=== PATIENT | male | born 2000 | race Caucasian/White ===

== ENCOUNTER 2021-12-20 22:20 | Inpatient (IN) | payer BC, SELFPAY ==
[2021-12-20 22:23] VITALS: BP 136/74; PULSE 63; RESP 18; TEMP 36.8; O2SAT 99; BMI 21.7
[2021-12-21 06:00] VITALS: BP 111/71; PULSE 56; RESP 16; TEMP 36.6; O2SAT 98
[2021-12-21] MEDS: folic acid 1 mg Tablet PO (08:43)
[2021-12-21] MEDS: multivitamin therapeutic Tablet 1 TAB PO (08:43)
[2021-12-21] MEDS: thiamine 100 mg Tablet PO (08:43)
--- NOTE | 2021-12-21 10:49 | W.PM.NPUH&PS ---
Providers/Chief Complaint Admitting Physician: Aftab Jacob MD Chief Complaint: Jeffryrose richarden HPI NPU History of Present Illness Yemi Oviedo is a 21 year old male who presented to outside hospital via EMS with alcohol intoxication and reportedly found lying unresponsive in the front yard of his parents home today. He was reportedly gagging and having emesis upon arrival of EMS. They report a significant history of alcohol abuse with multiple hospitalizations in the past. He received IM ketamine and then was reassessed when his alcohol level diminished. He was also positive for cannabis as well as blood alcohol of 257. He was transferred to [facility] and admitted to the neuropsychiatric unit for definitive treatment of those issues. He was sent with affidavits pressing concern for need for involuntary commitment if necessary. He presents today reporting that he had a tough life and that he has started drinking as a solution. He reports he had 1 brother killed when he was 5 who then run over by car. And then at 17 few years ago the brother who had been babysitting her brother got hit by the car kill himself secondary to feeling responsible for the situation. He reports that he is been hospitalized a few times specifically for alcohol overuse but he is never had inpatient psychiatric care, he denied outpatient psychiatric care, and has never been on medications. He reports he does have some cigarette smoking and cannabis use and has had alcohol overuse recently. He denies any other drug use. He reports that currently he is struggled with employment he has been unable to get a job when he does get a job quitting. There is amotivational syndrome along with depression, feelings of helplessness and hopelessness, and possible issues with hypervigilance avoidant behavior problematic sleep have culminated in him in the alcohol as an approach. Unfortunately he feels very adamant that he does not want to try medications reporting that he wants to figure it out without medication. He says the fact that its been was not going on recently without success but we discussed the risk benefits and alternatives of a trial of antidepressant or something for anxiety and he understood and agreed proceed as is documented in this note was action of those types of interventions were he currently lives in a house with his 2 sisters who are his remaining siblings from his parents. He reports that his mother lives with her and that his father was not around when he was a kid. He is not on a 96-hour hold but does have affidavits. Which we discussed. Meds NPU Home Medications Medication Instructions Recorded Confirmed Last Taken Type No Known Home Medications 12/20/21 12/20/21 Unknown History Allergies Allergy/AdvReac Type Severity Reaction Status Date / Time No Known Allergies Allergy Verified 12/20/21 22:24 Mental Status Exam MSE Comments: This is a slender, well-developed white male in hospital scrubs with adequate grooming and limited eye contact. No abnormal movements. Cooperative with exam in mild distress. Speech was decreased rate and volume. Mood described as depressed, affect congruent. Thought process organized. Thought content: patient denies suicidal or homicidal ideation, there were no delusions reported or noted, she denied auditory or visual hallucinations. Attention and concentration were intact and memory appeared reliable but none were formally tested. He?s alert and oriented times three. Insight and judgment appeared limited, impulse control appears impaired. Vitals/I&O/Wt Last Vital Signs Temp 97.9 F 12/21/21 06:00 Pulse 56 L 12/21/21 06:00 Resp 16 12/21/21 06:00 BP 111/71 12/21/21 06:00 Pulse Ox 98 12/21/21 06:00 Weight last 48 hrs Weight 72.665 kg A&P Assessment and plan (1) Alcohol use disorder, severe, dependence: Status: Acute (2) Major depressive disorder: Status: Acute (3) Complicated bereavement: Status: Acute Plan This is a 21-year-old white male with a long history of alcohol use with problematic drinking behavior, trauma and bereavement issues thoughts who presents reporting that he needs to get help, but not wanting to take any medications. 1. Continue current medication. 2. Continue every 15 minute checks for safety. 3. Encourage individual, group and milieu therapies. 4. Encourage sober living treatment after discharge at the highest level of care to which he is willing to commit. 5. We will monitor and consider whether we need to initiate a 96-hour hold if he is desiring to leave immediately given the affidavits on the chart. Involuntary Hold Information 96 Hour Hold: 96 Hour Involuntary Admission: No Attestations NPU Medical Necessity Statement*: Inpatient hospitalization is medically necessary and the clinically appropriate intervention at this time. We will monitor medication to make changes as indicated. Patient will be in the hospital for over two midnights. Likely length of stay 3 to 5 days. This will Coding Level of Care Code Acute Cessation Systems Outreach Specialist for g Fwd Diagnoses Alcohol use disorder, severe, dependence F10.20 Major depressive disorder F32.9 Complicated bereavement F43.21
[2021-12-21 14:00] VITALS: BP 125/66; PULSE 64; RESP 20; TEMP 36.6; O2SAT 98
[2021-12-21 21:35] VITALS: BP 113/66; PULSE 52; RESP 16; TEMP 36.4; O2SAT 99
[2021-12-22] MEDS: trazodone 50 mg Tablet PO (01:07)
[2021-12-22 06:00] VITALS: BP 110/70; PULSE 81; RESP 16; TEMP 36.4; O2SAT 96
[2021-12-22] MEDS: folic acid 1 mg Tablet PO (07:53)
[2021-12-22] MEDS: thiamine 100 mg Tablet PO (07:53)
[2021-12-22] MEDS: multivitamin therapeutic Tablet 1 TAB PO (07:53)
[2021-12-22 14:00] VITALS: BP 115/77; PULSE 69; RESP 17; TEMP 36.9; O2SAT 95
--- NOTE | 2021-12-22 17:15 | P.NPUPN_ITS ---
Subjective NPU Subjective: Patient presents today being more outgoing in the conversation and less guarded. He talked about some of his issues and why he thinks he has not been able to stay employed. He talked about being fired from [employer] distribution and that they are released they have been unwilling to consider t aking him back. We discussed ways to approach that issue. He talked about his drinking and what it actually appears like with not drinking daily but when he does drink he drinks 2 excess. He continues to endorse wanting to approach this since medication but was much more reasonable in discussing the overall picture of his life. We discussed likely discharge in the next 48 hours. Mental Status Exam MSE Comments: This is a slender, well-developed white male in hospital scrubs with adequate grooming and improving eye contact. No abnormal movements. Cooperative with exam in mild distress. Speech was more normal rate and volume. Mood described as a little better, affect congruent. Thought process organized. Thought content: patient denies suicidal or homicidal ideation, there were no delusions reported or noted, she denied auditory or visual hallucinations. Attention and concentration were intact and memory appeared reliable but none were formally tested. He?s alert and oriented times three. Insight and judgment appeared limited, impulse control appears impaired. Vitals/I&O/Wt Last Vital Signs Temp 98 F 12/22/21 21:13 Pulse 72 12/22/21 21:13 Resp 18 12/22/21 21:13 BP 134/85 12/22/21 21:13 Pulse Ox 99 12/22/21 21:13 A&P Assessment and plan (1) Complicated bereavement: Status: Acute (2) Major depressive disorder: Status: Acute (3) Alcohol use disorder, severe, dependence: Status: Acute Plan This is a 21-year-old white male with a long history of alcohol use with problematic drinking behavior, trauma and bereavement issues thoughts who presents reporting that he needs to get help, but not wanting to take any medications. 1.? Continue current medication. 2.? Continue every 15 minute checks for safety. 3.? Encourage individual, group and milieu therapies. 4.? Encourage sober living treatment after discharge at the highest level of care to which he is willing to commit. 5.? We will monitor and consider whether we need to initiate a 96-hour hold if he is desiring to leave immediately given the affidavits on the chart. Involuntary Hold Information 96 Hour Hold: 96 Hour Involuntary Admission: No Attestations NPU Medical Necessity Statement*: Inpatient hospitalization is medically necessary and the clinically appropriate intervention at this time. We will monitor medication to make changes as indicated. Likely length of stay 1-3 days. Coding Level of Care Code Acute Feeder Catcher for [facility] Fwd Diagnoses Complicated bereavement F43.21 Major depressive disorder F32.9 Alcohol use disorder, severe, dependence F10.20
[2021-12-22 21:13] VITALS: BP 134/85; PULSE 72; RESP 18; TEMP 36.6; O2SAT 99
[2021-12-22] MEDS: hyDROXYzine 25 mg Capsule 50 MG PO (22:28)
[2021-12-23 06:00] VITALS: BP 132/73; PULSE 54; RESP 16; TEMP 36.7; O2SAT 99
[2021-12-23] MEDS: thiamine 100 mg Tablet PO (08:51)
[2021-12-23] MEDS: multivitamin therapeutic Tablet 1 TAB PO (08:51)
[2021-12-23] MEDS: folic acid 1 mg Tablet PO (08:51)
[2021-12-23] MEDS: hyDROXYzine 25 mg Capsule 50 MG PO (13:57)
[2021-12-23 14:00] VITALS: BP 106/65; PULSE 56; RESP 16; TEMP 36.7; O2SAT 99
--- NOTE | 2021-12-23 18:27 | P.NPUDS_ITS ---
Diagnoses at Discharge Discharge Diagnosis (1) Complicated bereavement: Status: Acute (2) Major depressive disorder: Status: Acute (3) Alcohol use disorder, severe, dependence: Status: Acute Reason for Visit Reason for Visit: Psych eval Brief History: Yemi Oviedo is a 21 year old male who presented to outside hospital via EMS with alcohol intoxication and reportedly found lying unresponsive in the front yard of his parents home today.? He was reportedly gagging and having emesis upon arrival of EMS.? They report a significant history of alcohol abuse with multiple hospitalizations in the past.? He received IM ketamine and then was reassessed when his alcohol level diminished.? He was also positive for cannabis as well as blood alcohol of 257.? He was transferred to [facility] and admitted to the neuropsychiatric unit for definitive treatment of those issues.? He was sent with affidavits pressing concern for need for involuntary commitment if necessary.? He presents today reporting that he had a tough life and that he has started drinking as a solution.? He reports he had 1 brother killed when he was 5 who then run over by car.? And then at 17 few years ago the brother who had been babysitting her brother got hit by the car kill himself secondary to feeling responsible for the situation.? He reports that he is been hospitalized a few times specifically for alcohol overuse but he is never had inpatient psychiatric care, he denied outpatient psychiatric care, and has never been on medications.? He reports he does have some cigarette smoking and cannabis use and has had alcohol overuse recently.? He denies any other drug use.? He reports that currently he is struggled with employment he has been unable to get a job when he does get a job quitting.? There is amotivational syndrome along with depression, feelings of helplessness and hopelessness, and possible issues with hypervigilance avoidant behavior problematic sleep have culminated in him in the alcohol as an approach.? Unfortunately he feels very adamant that he does not want to try medications reporting that he wants to figure it out without medication.? He says the fact that its been was not going on recently without success but we discussed the risk benefits and alternatives of a trial of antidepressant or something for anxiety and he understood and agreed proceed as is documented in this note was action of those types of interventions were he currently lives in a house with his 2 sisters who are his remaining siblings from his parents.? He reports that his mother lives with her and that his father was not around when he was a kid.? He is not on a 96-hour hold but does have affidavits.? Which we discussed. Hospital Course Hospital Course He quickly acclimated to the individual, group and milieu therapies provided. It became fairly clear that his greatest challenge was his periodic extreme alcohol use. He did have some depression in his life and some bereavement issues but he was not interested in initiate medication for treatment. He was monitored to ensure safety concerns were not prominent. He had significant improvement and was able to contract for safety outside of the hospital prior to discharge. At the outside hospital, patient had routine laboratory studies which were within normal limits except for few outliers. Additionally there was a general medical evaluation which was also within normal limits and revealed no new acute processes. Discharge Summary: At the time of discharge, he denied psychosis or lethality. Mood and anxiety were well managed. Patient endorsed a plan to avoid all drugs of abuse and follow-up with the aftercare recommendations of the treatment team. Patient was evaluated and deemed to be absent credible lethality, and had achieved the maximum benefit from an inpatient hospitalization, so was discharged. Involuntary Hold Information 96 Hour Hold: 96 Hour Involuntary Admission: No Mental Status Exam MSE Comments: This is a slender, well-developed white male in hospital scrubs with adequate grooming and improving eye contact. No abnormal movements. Cooperative with exam in no acute distress. Speech was more normal rate and volume. Mood described as better, affect congruent. Thought process organized. Thought content: patient denies suicidal or homicidal ideation, there were no delusions reported or noted, she denied auditory or visual hallucinations. At tention and concentration were intact and memory appeared reliable but none were formally tested. He?s alert and oriented times three. Insight and judgment appeared limited, but improving impulse control appears limited. Discharge Data Vitals: Last Vital Signs Temp 98.0 F 12/23/21 14:00 Pulse 56 L 12/23/21 14:00 Resp 16 12/23/21 14:00 BP 106/65 12/23/21 14:00 Pulse Ox 99 12/23/21 14:00 Discharge Plan Discharge Patient Disposition: Home Condition: Stable Prescriptions: New trazodone 50 mg Tablet 50 mg PO BEDTIME PRN (Reason: Sleep) 30 Days Qty: 30 1RF hydroxyzine pamoate 25 mg Capsule 50 mg PO Q6H PRN (Reason: Anxiety) 30 Days Qty: 120 1RF Vitamin B-1 (mononitrate) 100 mg Tablet 100 mg PO DAILY 30 Days Qty: 30 1RF Discharge Orders: Discharge Order (Routine); Ordered 12/23/21 Ordered By: Aftab Jacob Referrals: [facility] [Other] (Walk in status Tuesday-Tuesday 8-4pm. ) [facility] [Other] - 12/29/21 2:30 pm (New apt with Jessica Farias 12/29/21 @2:30 pm. ) Discharge Diet: Regular Discharge Activity: Resume usual activity Patient Instructions: Opioid Safety Discharge Attestations NPU Time Spent in Discharge Care*: less than 30 min Specific Discharge Activities: Specific discharge activities: educating patient, discussing with top case assembler/social workers/dc planners, documenting/other paperwork and evaluating patient/reviewing data Coding Level of Care Code Acute Chg FW DC note Diagnoses Complicated bereavement F43.21 Major depressive disorder F32.9 Alcohol use disorder, severe, dependence F10.20
[2021-12-23 18:49] VITALS: BP 106/65; PULSE 56; RESP 16; TEMP 36.7; O2SAT 99
== END 2021-12-23 19:03 | disposition home or self-care (01) | DRG 897 ==
PROVIDERS: Admitting Provider Psychiatry & Neurology Psychiatry; Visit Provider Psychiatry & Neurology Psychiatry
DX: F10.229 Alcohol dependence with intoxication, unspecified (principal); Y90.8 Blood alcohol level of 240 mg/100 ml or more; F32.9 Major depressive disorder, single episode, unspecified; F12.90 Cannabis use, unspecified, uncomplicated; Z81.8 Family history of other mental and behavioral disorders; F17.210 Nicotine dependence, cigarettes, uncomplicated; Z63.4 Disappearance and death of family member
CPT/HCPCS: 97150; 97165